=== PATIENT | female | born 1995 | race Caucasian/White ===

== ENCOUNTER 2022-10-28 13:49 | Emergency (ER) | payer SELFPAY ==
[~2022-10-28] VITALS: Ht 162.6 cm; Wt 74.8 kg
[2022-10-28 13:55] VITALS: BP 129/66
--- NOTE | 2022-10-28 15:00 | NUR ---
27 Y/O FEMALE BIB BOYFRIEND C/O RIGHT LEG PAIN RADIATING TO THE LOWER BACK AND WAIST X2DAYS, DENIES ANY RECENT TRAUMA/INJURY, DENIES ANY NUMBNESS OR TINGLING ON THE AREA, FULL ROM NOTED WITH PAIN. NKA PMH: DENIES
[2022-10-28] MEDS ORDERED: NAPR-54 PO (15:04)
[2022-10-28] MEDS ORDERED: LID5T TP (15:04)
[2022-10-28] MEDS ORDERED: GABA300C PO (15:04)
[2022-10-28 15:11] LABS: APPEARANCE,URINE CLEAR (CLEAR); COLOR,URINE YELLOW (YELLOW); LEUKOCYTE ESTERASE ,URINE NEGATIVE (NEGATIVE)
[2022-10-28 15:12] LABS: BLOOD, URINE NEGATIVE (NEGATIVE); NITRITE, URINE POSITIVE (NEGATIVE)
[2022-10-28 15:13] LABS: UGLUCOSE NEGATIVE (NEGATIVE)
[2022-10-28 15:14] LABS: BILIRUBIN,URINE NEGATIVE (NEGATIVE)
--- NOTE | 2022-10-28 15:25 | NUR ---
Patient discharged with v/s stable. Written and verbal after care instructions ABOUT SCIATICA AND LUMBAR STRAIN given and explained. Patient alert, oriented and verbalized understanding of instructions. Ambulatory with steady gait. All questions addressed prior to discharge. ID band removed. Patient advised to follow up with PMD. Rx of LIDODERM, GABAPENTIN,NAPROXEN given. Patient educated on indication of medication including possible reaction and side effects. Opportunity to ask questions provided and answered.
[2022-10-28 15:49] LABS: OTHER CASTS, URINE None Seen /LPF (None Seen); RBC,URINE 0-5 /HPF (0-5)
== END 2022-10-28 15:25 | disposition home or self-care (01) ==
LOC: MED 13:49
DX: S39.012A Strain of muscle, fascia and tendon of lower back, initial encounter (principal); M54.16 Radiculopathy, lumbar region; J45.909 Unspecified asthma, uncomplicated; X58.XXXA Exposure to other specified factors, initial encounter; Y93.89 Activity, other specified; Y92.89 Other specified places as the place of occurrence of the external cause; Y99.8 Other external cause status
CPT/HCPCS: 81001; 81025; 87086; 99283